=== PATIENT | female | born 1955 | race Caucasian/White ===

== ENCOUNTER 2016-07-26 15:56 | Observation (INO) | payer OTHER ==
[~2016-07-26] VITALS: Ht 152.4 cm; Wt 133.7 kg
[~2016-07-26 15:56] MED LIST: ALBU1AER9 INH; BUPR100T8 PO; BYTI10 SQ; CHOLTAB3 PO; CLBCRM30 EXT; CYCL10TA6 PO; FLUO0.05 TOP; IPRA1AER2 INH; LEVO100T7 PO; LIDO5DIS10 TD; LSX20 PO; METO25TA3 PO; METR0.754 TOP; OXYC1CAP5 PO; OXYC20TA50 PO; PIME1CRE9 TOP; SKINCRE34 TOP; [UNRECOGNIZED DRUG - CODE] TOP
[2016-07-26] MEDS ORDERED: SODIUM CHLORIDE 0.9% 1000ML 1,000 ML IV STA (16:17)
[2016-07-26] MEDS ORDERED: OPTIRAY 320 IV PRN (16:30)
--- NOTE | 2016-07-26 16:34 | EMERGENCY ROOM VISIT NOTE ---
History Report prepared by Rojelio: Jennifer Nash Under the Supervision of: Dr. Jaqui Negrete M.D. First contact with patient: 16:15 Chief Complaint: LEG PAIN,LEG INJURY Stated Complaint: R LEG/KNEE PAIN History of Present Illness The patient is a 60 year old female who presents to the Emergency Room with complaints of worsening edema to right lower leg beginning a few days prior to arrival. The patient states that for the past 4 days she has not been taking her water pill due to having to help . She is experiencing pain with ambulating. The patient is also very short of breath. She is on Coumadin. 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 Review of Systems See HPI for pertinent positives & negatives. A total of 10 systems reviewed and were otherwise negative. Past Medical & Surgical Medical Problems: (1) Asthma, Unspecified (2) Bronchitis Nos (3) Diab Shanti Wo Comp Type Ii Or Nos/Not Uncontrolled (4) Diverticulosis Colon (W/O Ment Of Hemorrhage) (5) Fibromyalgia (6) History of deep venous thrombosis or pulmonary embolus (7) Hypertension (8) Hypothyroidism Nos (9) Hypovolemia (10) Leg pain, bilateral (11) Malignant neoplasm of central portion of female breast (12) Morbid obesity (13) MTHFR mutation (14) Peripheral edema (15) Peripheral neuropathy (16) Psoriasis (17) Rosacea (18) SVT (supraventricular tachycardia) Surgical Problems: (1) H/O prior ablation treatment (2) History of parotid gland excision Family History Cancer Diabetes mellitus Heart disease Hypertension Kidney disease Kidney stones Social History Smoking Status: Former Smoker Alcohol Use: occasionally Marital Status: Housing Status: lives with significant other Occupation Status: retired Current/Historical Medications Scheduled Bupropion (Wellbutrin Sr), 100 MG PO BID Cyclobenzaprine Hcl (Flexeril), 10 MG PO HS Ergocalciferol (Vitamin D), 400 INTER.UNIT PO DAILY Eucerin (Eucerin), 1 APPLN TOP DAILY Exenatide (Byetta), 10 MCG SQ BIDM Folic Acid (Folvite), 1 MG PO DAILY Furosemide (Furosemide), 20 MG PO DAILY Insulin Glargine (Lantus Solostar), 28 UNITS SQ QAM Levothyroxine Sodium (Levothyroxine Sodium), 100 MCG PO DAILY Metoprolol Succ (Toprol Xl) (Toprol-Xl), 25 MG PO BID Minocycline Hcl (Minocycline Hcl), 1 CAP PO BIDM Oxycodone Hcl (Oxycontin), 20 MG PO Q12 Warfarin Sodium (Coumadin), 5 MG PO DAILY Scheduled PRN Albuterol Sulfate (Proair Hfa), 2 PUFFS INH QID PRN for Shortness of Breath Hydrocortisone (Topical) (Hydrocortisone), 1 APPLN TOP BID PRN for RASH Iodoquinol-Hydrocortisone In A (Vytone), 1 APPLN TOP BID PRN for FLARES Ipratropium-Albuterol (Combivent Respimat), 1 PUFFS INH QID PRN for Shortness of Breath Lidocaine (Lidoderm Patch 5%), 2 PATCH TD DAILY PRN for Pain Metronidazole Hcl (Metrocream), 1 APPLN TOP BID PRN for flares Oxycodone Hcl (Oxycodone Hcl), 5 MG PO Q6 PRN for Pain Pimecrolimus (Elidel), 1 APPLN TOP BID PRN for RASH Allergies Coded Allergies: Sulfa Antibiotics (Verified Allergy, Severe, RASH, ITCHINESS, HIVES, DIFFICULTY BREATHING, 09/26/14) Sulfites (Unverified Allergy, Severe, rash,diff breathing, 04/17/14) Amoxicillin (Verified Allergy, Unknown, rash/hives, 04/17/14) Aspirin (Verified Allergy, Unknown, 04/17/14) Erythromycin (Verified Allergy, Unknown, UNKN, 04/17/14) Methocarbamol (Verified Allergy, Unknown, rash,itchiness, hives, difficulty breathing, 04/17/14) Niacin (Verified Allergy, Unknown, red/itchy/heart racing, 04/17/14) Ibuprofen (Verified Adverse Reaction, Severe, TACHYCARDIA , 04/17/14) Meperidine (Verified Adverse Reaction, Severe, N/V, SEVERE NIGHTMARES, ) Physical Exam Vital Signs Date Time Temp Pulse Resp B/P Pulse Ox O2 Delivery O2 Flow Rate FiO2 07/26/16 19:36 102 20 164/70 97 Room Air 07/26/16 19:27 101 18 124/82 98 Room Air 07/26/16 16:52 102 07/26/16 16:05 36.7 103 18 195/113 99 Room Air Physical Exam Vital signs reviewed. General: Morbidly obese female, in no significant distress. HEENT: No scleral icterus, PERRLA, neck supple. Atraumatic. Cardiovascular: Regular rate and rhythm, no extra sounds. Pulmonary: No increase of work of breathing, diminished breath sounds bilaterally otherwise clear. Abdomen: Soft, nontender, nondistended, positive bowel sounds. Musculoskeletal: Atraumatic, non pitting intense edema to bilateral lower extremity to knees. Neurologic: Patient awake alert and oriented x 3, full strength in all 4 extremities. Cranial nerves 2 through 12 grossly intact. Skin: Warm, dry, no rash Medical Decision & Procedures ER Provider Diagnostic Interpretation: Radiology results as stated below per my review and radiologist interpretation: CT ANGIOGRAM OF THE CHEST CLINICAL HISTORY: Atypical chest pain. Leg pain. History of prior pulmonary embolism. COMPARISON STUDY: 09/26/2014 TECHNIQUE: Following the IV administration of 93 mL of Optiray-320, CT angiogram of the thorax was performed from the thoracic inlet to the lung bases utilizing the pulmonary embolus protocol. Images are reviewed in the axial, sagittal, and coronal planes. IV contrast was administered without complication. MIP imaging was performed. CT DOSE: 760.35 mGy.cm FINDINGS: No pathologically enlarged axillary mediastinal or hilar lymph nodes were visualized. There was no evidence of thoracic aortic dilatation. There were no pulmonary artery filling defects to indicate acute pulmonary embolism. No pleural effusions are visualized. There was no evidence of focal pulmonary consolidation. IMPRESSION: 1. No CT evidence of acute pulmonary embolism 2. No evidence of focal pulmonary consolidation Electronically signed by: Andres Boyd M.D. 07/26/2016 6:00 PM Dictated Date/Time: 07/26/2016 5:55 PM Laboratory Results Test 07/26/16 16:42 07/26/16 16:46 Immature Granulocyte % (Auto) 0.3 % White Blood Count 8.85 K/uL (4.8-10.8) Red Blood Count 4.92 M/uL (4.2-5.4) Hemoglobin 15.2 g/dL (12.0-16.0) Hematocrit 42.7 % (37-47) Mean Corpuscular Volume 86.8 fL (80-100) Mean Corpuscular Hemoglobin 30.9 pg (25-34) Mean Corpuscular Hemoglobin Concent 35.6 g/dl (32-36) Platelet Count 209 K/uL (130-400) Mean Platelet Volume 9.3 fL (7.4-10.4) Neutrophils (%) (Auto) 58.3 % Lymphocytes (%) (Auto) 27.7 % Monocytes (%) (Auto) 11.4 % Eosinophils (%) (Auto) 2.0 % Basophils (%) (Auto) 0.3 % Neutrophils # (Auto) 5.15 K/uL (1.4-6.5) Lymphocytes # (Auto) 2.45 K/uL (1.2-3.4) Monocytes # (Auto) 1.01 K/uL (0.11-0.59) Eosinophils # (Auto) 0.18 K/uL (0-0.5) Basophils # (Auto) 0.03 K/uL (0-0.2) Immature Granulocyte # (Auto) 0.03 K/uL (0.00-0.02) Activated Partial Thromboplast Time 33.6 SECONDS (21.0-31.0) Partial Thromboplastin Ratio 1.3 Total Bilirubin 1.0 mg/dl (0.2-1) Direct Bilirubin 0.2 mg/dl (0-0.2) Aspartate Amino Transf (AST/SGOT) 21 U/L (15-37) Alanine Aminotransferase (ALT/SGPT) 28 U/L (12-78) Alkaline Phosphatase 81 U/L (45-117) Total Protein 7.7 gm/dl (6.4-8.2) Albumin 3.6 gm/dl (3.4-5.0) Bedside Hemoglobin 15.3 g/dl (12.0-16.0) Bedside Hematocrit 45 % (37-47) Bedside Sodium 140 mEq/L (135-144) Bedside Potassium 3.8 mEq/L (3.3-5.0) Bedside Chloride 99 mEq/L (101-112) Bedside Total CO2 28 mEq/l (24-31) Bedside Blood Urea Nitrogen 12 mg/dl (7-18) Bedside Creatinine 0.7 mg/dl (0.6-1.3) Bedside Glucose (other) 135 mg/dl (70-99) Bedside Ionized Calcium (Yovana) 1.20 mmol/l (1.12-1.32) Laboratory results per my review. Medications Administered Medications (Trade) Dose Ordered Sig/Ian Route Start Time Stop Time Status Last Admin Dose Admin Furosemide (Lasix Inj) 40 mg NOW STAT IV 07/26/16 17:03 07/26/16 17:04 DC 07/26/16 17:03 40 MG Labetalol HCl (Normodyne IV) 10 mg NOW STAT IV 07/26/16 18:05 07/26/16 18:06 DC 07/26/16 18:05 10 MG Oxycodone HCl (Roxicodone Immediate Rel Tab) 10 mg NOW STAT PO 07/26/16 18:40 07/26/16 18:42 DC 07/26/16 18:40 10 MG ECG Indication: weakness Rate (beats per minute): 102 Rhythm: sinus tachycardia Findings: no acute ischemic change, no ectopy ED Course 162: Past medical records reviewed. The patient was evaluated in room B4. A complete history and physical examination was performed. 1703: Lasix Inj 40 mg IV, 1805: Normodyne IV 10 mg IV. Medical Decision The patient is a 60 year old female who presents to the ED with complaints of right leg edema. Differentials include DVT, musculoskeletal, infection, joint effusion, trauma, lymphedema, idiopathic, CHF, as well as others were entertained.. This patient was evaluated and appeared to be in no distress. IV access was obtained and laboratory work was drawn. The patient was placed on the photoengraving apprentice and found to be in a normal sinus rhythm. She is morbidly obese and has significant difficulty ambulating. The patient is requiring a walker and 2 person assist due to the pain and swelling. Ultrasound of the bilateral lower extremities were performed and are negative for DVT. The patient was medicated with 40 mg of IV Lasix. Patient was given a dose of IV labetalol 10 mg for persistent hypertension. At this point the patient is not able to care for herself, therefore cannot be discharged. She is requiring IV diuresis and physical therapy evaluation. The patient has been were made aware of this plan and agrees. Impression Primary Impression: Hypertension Additional Impressions: Fluid retention Morbid obesity Scribe Attestation The scribe's documentation has been prepared under my direction and personally reviewed by me in its entirety. I confirm that the note above accurately reflects all work, treatment, procedures, and medical decision making performed by me. Departure Information Dispostion Being Evaluated By Hospitalist Referrals Marcellus Ortiz III, M.D. (PCP) Problem Qualifiers
[2016-07-26 16:52] LABS: BASO % 0.3 %; BASO ABS # 0.03 K/uL (0-0.2); COMPLETE YES; HEMATOCRIT 42.7 % (37-47); IG% 0.3 %; LYMPH % 27.7 %; LYMPH ABS # 2.45 K/uL (1.2-3.4); MEAN CELL VOLUME 86.8 fL (80-100); MEAN CORPUSCULAR HEMOGLOBIN 30.9 pg (25-34); MEAN CORPUSCULAR HGB CONC 35.6 g/dl (32-36); MEAN PLATELET VOLUME 9.3 fL (7.4-10.4); MONO % 11.4 %; NEUT % 58.3 %; PLATELET COUNT 209 K/uL (130-400); RED BLOOD COUNT 4.92 M/uL (4.2-5.4); WHITE BLOOD COUNT 8.85 K/uL (4.8-10.8)
[2016-07-26 17:01] LABS: ISTAT CREATININE 0.7 mg/dl (0.6-1.3); ISTAT HEMOGLOBIN 15.3 g/dl (12.0-16.0); ISTAT IONIZED CALCIUM 1.2 mmol/l (1.12-1.32)
[2016-07-26 17:02] LABS: PARTIAL THROMBOPLASTIN RATIO 1.3; PROTHROMBIN TIME (PATIENT) 22.4 SECONDS (9.0-12.0)
[2016-07-26] MEDS ORDERED: FUROSEMIDE 40 MG/4 ML VIAL IV STA (17:03)
[2016-07-26 17:09] LABS: CALCIUM 9.5 mg/dl (8.5-10.1); CREATININE 0.87 mg/dl (0.60-1.20); POTASSIUM 3.8 mmol/L (3.5-5.1)
--- NOTE | 2016-07-26 18:02 | DIAGNOSTIC IMAGING REPORT ---
CT ANGIOGRAM OF THE CHEST CLINICAL HISTORY: Atypical chest pain. Leg pain. History of prior pulmonary embolism. COMPARISON STUDY: 09/26/2014 TECHNIQUE: Following the IV administration of 93 mL of Optiray-320, CT angiogram of the thorax was performed from the thoracic inlet to the lung bases utilizing the pulmonary embolus protocol. Images are reviewed in the axial, sagittal, and coronal planes. IV contrast was administered without complication. MIP imaging was performed. CT DOSE: 760.35 mGy.cm FINDINGS: No pathologically enlarged axillary mediastinal or hilar lymph nodes were visualized. There was no evidence of thoracic aortic dilatation. There were no pulmonary artery filling defects to indicate acute pulmonary embolism. No pleural effusions are visualized. There was no evidence of focal pulmonary consolidation. IMPRESSION: 1. No CT evidence of acute pulmonary embolism 2. No evidence of focal pulmonary consolidation Electronically signed by: Andres Boyd M.D. 07/26/2016 6:00 PM Dictated Date/Time: 07/26/2016 5:55 PM
[2016-07-26] MEDS ORDERED: LABETALOL HCL IV 5 MG/ML 20ML IV STA (18:05)
--- NOTE | 2016-07-26 18:28 | DIAGNOSTIC IMAGING REPORT ---
ULTRASOUND VENOUS DOPPLER LWR EXT BILA CLINICAL HISTORY: Bilateral leg pain COMPARISON STUDY: September 2014 FINDINGS: Real-time and color flow Doppler imaging were performed. Flow was seen within the femoral, popliteal and calf veins with no intraluminal thrombus demonstrated. The saphenous vein is patent. IMPRESSION: No evidence of lower extremity DVT Electronically signed by: Andres Boyd M.D. 07/26/2016 6:26 PM Dictated Date/Time: 07/26/2016 6:25 PM
[2016-07-26] MEDS ORDERED: OXYCODONE HCL IR 5 MG TAB (IMMEDIATE RELEASE) PO STA (18:40)
[2016-07-26] MEDS ORDERED: WARF5TAB90 PO (19:10)
[2016-07-26] MEDS ORDERED: HYDR2.5O TOP (19:15)
[2016-07-26] MEDS ORDERED: MINO50CA3 PO (19:17)
[2016-07-26] MEDS ORDERED: INSDGIPEN SQ (19:20)
[2016-07-26] MEDS ORDERED: FOLI1TAB7 PO (19:21)
[2016-07-26] MEDS ORDERED: GLUCOSE 40% GEL 15 GM TUBE PO PRN (20:45)
[2016-07-26] MEDS ORDERED: GLUCOSE 10 TABS/TUBE PO PRN (20:45)
[2016-07-26] MEDS ORDERED: GLUCAGON FOR INJ 1 MG VIAL SQ PRN (20:45)
[2016-07-26] MEDS ORDERED: ACETAMINOPHEN 325 MG TAB PO PRN (20:45)
[2016-07-26] MEDS ORDERED: DEXTROSE 50% 50 ML SYR IV PRN (20:45)
[2016-07-26] MEDS ORDERED: ONDANSETRON INJ 2 MG/ML 2 ML VIAL IV PRN (20:45)
[2016-07-26] MEDS ORDERED: POLYETHYLENE (MIRALAX) 17 GM PACK PO PRN (20:45)
[2016-07-26] MEDS ORDERED: NF656 TD (20:58)
[2016-07-26] MEDS ORDERED: LIDODERM (LIDOCAINE) PATCH 5% TD PRN (21:00)
[2016-07-26] MEDS: INSULIN ASPART 100 UNITS/ML 3 ML PEN SC SCH (21:00)
[2016-07-26] MEDS ORDERED: IPRATROPIUM BROMIDE/ALBUTEROL respimat INH INH PRN (21:00)
[2016-07-26] MEDS ORDERED: ALBUTEROL HFA 8 GM INHALER INH PRN (21:00)
--- NOTE | 2016-07-26 21:18 | History and Physical ---
History & Physical Date & Time of Service: Jul 26, 2016 at 20:59 Chief Complaint: R Leg/Knee Pain Primary Care Physician: Marcellus Ortiz III, M.D. History of Present Illness Source: patient 60 yo F presents today with difficulty ambulating at home secondary to severe leg pain and leg swelling over the past 7 days. She states she takes Lasix 20mg PO daily, and has been noncompliant with this for the past 7 days as she has been going to appointments with her and cannot take them when out of her house. She also admits to some dietary indiscretions with salty foods this week. She states that at baseline she can walk to the back of the grocery store and up to the front without stopping, but now she is have trouble doing small things like ambulating to the bathroom. 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 She has some pain over the anterior tibial plateau bilaterally, and on the right this pain tracks up the lateral side of her right knee. Then she reports some L ankle swelling which she attributes to using this leg to compensate from her gait which has been off 2/2 to the pain in the knees. She also reports burning neuropathic pain on the bottoms of her feet. Underlying everything is a history of fibromyalgia, for which she takes chronic narcotics. She is morbidly obese, and reports a weight gain of 7 pounds over the past week. 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 For this, she remains on coumadin and is fully anticoagulated. She is not tachypneic, there is no conversational dyspnea today, and she is not hypoxic. However, she does appear short of breath with minimal exertion. She is s/p ablation many years ago for an SVT, but denies any chest pain or palpitations at this time. She also denies headache, sore throat, cough, fevers, chills, nausea, vomiting, diarrhea , or constipation. She is tolerating PO. CT chest with contrast reveals no PE or other acute lung process in the ER; bilateral lower extremity ultrasounds are negative for any DVT. Past Medical/Surgical History Medical Problems: (1) Asthma, Unspecified Status: Chronic (2) Bronchitis Nos Status: Resolved (3) Diab Shanti Wo Comp Type Ii Or Nos/Not Uncontrolled Status: Chronic (4) Diverticulosis Colon (W/O Ment Of Hemorrhage) Status: Chronic (5) Fibromyalgia Status: Chronic (6) History of deep venous thrombosis or pulmonary embolus Status: Chronic (7) Hypertension Status: Chronic (8) Hypothyroidism Nos Status: Chronic (9) Hypovolemia Status: Chronic (10) Leg pain, bilateral Status: Chronic (11) Malignant neoplasm of central portion of female breast Permanent Comment: Abnormal right breast mammogram Status post biopsy revealing invasive ductal carcinoma status post lumpectomy and sentinel lymph node biopsy pathologic stage [id number] Carine receptor positive, progesterone receptor positive, HER-2/yovani negative Oncotype DX score of 13 Status post completion of radiation therapy 08/15/2011 received 6120 cGy Intolerance to antiestrogen therapy Status: Resolved (12) Morbid obesity Status: Chronic (13) MTHFR mutation Status: Chronic (14) Peripheral edema Status: Chronic (15) Peripheral neuropathy Status: Chronic (16) Psoriasis Status: Chronic (17) Rosacea Status: Chronic (18) SVT (supraventricular tachycardia) Status: Resolved Surgical Problems: (1) H/O prior ablation treatment Status: Chronic (2) History of parotid gland excision Status: Chronic Family History Cancer Diabetes mellitus Heart disease Hypertension Kidney disease Kidney stones Social History Smoking Status: Former Smoker Smokeless Tobacco Use: No Alcohol Use: occasionally Drug Use: none Marital Status: Housing status: lives with significant other Occupational Status: retired, disabled Immunizations History of Influenza Vaccine: Yes Influenza Vaccine Date: Feb 13, 2015 History of Tetanus Vaccine?: Yes Tetanus Immunization Date: Feb 17, 2007 History of Pneumococcal: Yes Pneumococcal Date: Dec 01, 2012 History of Hepatitis B Vaccine: Yes Hepatitis Immunization Date: September 13, 2013 Multi-Drug Resistant Organisms History of MDRO: No Allergies Coded Allergies: Sulfa Antibiotics (Verified Allergy, Severe, RASH, ITCHINESS, HIVES, DIFFICULTY BREATHING, 09/26/14) Sulfites (Unverified Allergy, Severe, rash,diff breathing, 04/17/14) Amoxicillin (Verified Allergy, Unknown, rash/hives, 04/17/14) Aspirin (Verified Allergy, Unknown, 04/17/14) Erythromycin (Verified Allergy, Unknown, UNKN, 04/17/14) Methocarbamol (Verified Allergy, Unknown, rash,itchiness, hives, difficulty breathing, 04/17/14) Niacin (Verified Allergy, Unknown, red/itchy/heart racing, 04/17/14) Ibuprofen (Verified Adverse Reaction, Severe, TACHYCARDIA , 04/17/14) Meperidine (Verified Adverse Reaction, Severe, N/V, SEVERE NIGHTMARES, ) Home Medications Scheduled Bupropion (Wellbutrin Sr), 100 MG PO BID Cyclobenzaprine Hcl (Flexeril), 10 MG PO HS Ergocalciferol (Vitamin D), 400 INTER.UNIT PO DAILY Eucerin (Eucerin), 1 APPLN TOP DAILY Exenatide (Byetta), 10 MCG SQ BIDM Folic Acid (Folvite), 1 MG PO DAILY Furosemide (Furosemide), 20 MG PO DAILY Insulin Glargine (Lantus Solostar), 28 UNITS SQ QAM Levothyroxine Sodium (Levothyroxine Sodium), 100 MCG PO DAILY Metoprolol Succ (Toprol Xl) (Toprol-Xl), 25 MG PO BID Minocycline Hcl (Minocycline Hcl), 1 CAP PO BIDM Oxycodone Hcl (Oxycontin), 20 MG PO Q12 Warfarin Sodium (Coumadin), 5 MG PO DAILY Scheduled PRN Albuterol Sulfate (Proair Hfa), 2 PUFFS INH QID PRN for Shortness of Breath Hydrocortisone (Topical) (Hydrocortisone), 1 APPLN TOP BID PRN for RASH Iodoquinol-Hydrocortisone In A (Vytone), 1 APPLN TOP BID PRN for FLARES Ipratropium-Albuterol (Combivent Respimat), 1 PUFFS INH QID PRN for Shortness of Breath Lidocaine (Lidoderm Patch 5%), 2 PATCH TD DAILY PRN for Pain Metronidazole Hcl (Metrocream), 1 APPLN TOP BID PRN for flares Oxycodone Hcl (Oxycodone Hcl), 5 MG PO Q6 PRN for Pain Pimecrolimus (Elidel), 1 APPLN TOP BID PRN for RASH Review of Systems All reviewed and negative except as indicated in HPI Constitutional: + fever Physical Exam Vital Signs Date Time Temp Pulse Resp B/P Pulse Ox O2 Delivery O2 Flow Rate FiO2 07/26/16 19:36 102 20 164/70 97 Room Air 07/26/16 19:27 101 18 124/82 98 Room Air 07/26/16 16:52 102 07/26/16 16:05 36.7 103 18 195/113 99 Room Air GEN: obese, in no acute distress, alert and appropriate, short of breath with minimal exertion HEENT: NC/AT, PERRL, normal sclerae, pharynx non-acute, mucous membranes moist CARDIO: reg rate, S1/2 heard without m/g/r LUNGS: CTA bilaterally, no crackles, rales or wheezes, good diaphragmatic excursion ABD: soft, non-tender, non-distended, no rebound or guarding EXTREMITY: RP and DP palpable 2+ bilat, extremities are warm and well-perfused, there is chronic change to the skin in the form of erythroderma and hardened, tightened skin. No pitting edema is present. Legs are very obese limiting exam. ROM appears intact, gait was not assessed as patient is a fall risk at this time. NEURO: CN 2-12 grossly intact, sensation intact throughout MUSC:moves all extremities equally, no gross focal deficits SKIN: warm and dry and as above Diagnostics Laboratory Results Results Past 24 Hours Test 07/26/16 16:42 07/26/16 16:46 Range/Units White Blood Count 8.85 4.8-10.8 K/uL Red Blood Count 4.92 4.2-5.4 M/uL Hemoglobin 15.2 12.0-16.0 g/dL Hematocrit 42.7 37-47 % Mean Corpuscular Volume 86.8 80-100 fL Mean Corpuscular Hemoglobin 30.9 25-34 pg Mean Corpuscular Hemoglobin Concent 35.6 32-36 g/dl Platelet Count 209 130-400 K/uL Mean Platelet Volume 9.3 7.4-10.4 fL Neutrophils (%) (Auto) 58.3 % Lymphocytes (%) (Auto) 27.7 % Monocytes (%) (Auto) 11.4 % Eosinophils (%) (Auto) 2.0 % Basophils (%) (Auto) 0.3 % Neutrophils # (Auto) 5.15 1.4-6.5 K/uL Lymphocytes # (Auto) 2.45 1.2-3.4 K/uL Monocytes # (Auto) 1.01 0.11-0.59 K/uL Eosinophils # (Auto) 0.18 0-0.5 K/uL Basophils # (Auto) 0.03 0-0.2 K/uL RDW Standard Deviation 42.5 36.4-46.3 fL RDW Coefficient of Variation 13.4 11.5-14.5 % Immature Granulocyte % (Auto) 0.3 % Immature Granulocyte # (Auto) 0.03 0.00-0.02 K/uL Prothrombin Time 22.4 9.0-12.0 SECONDS Prothromb Time International Ratio 2.0 0.9-1.1 Activated Partial Thromboplast Time 33.6 21.0-31.0 SECONDS Partial Thromboplastin Ratio 1.3 Sodium Level 140 136-145 mmol/L Potassium Level 3.8 3.5-5.1 mmol/L Chloride Level 102 98-107 mmol/L Carbon Dioxide Level 33 21-32 mmol/L Anion Gap 5.0 18.0 16-25 mmol/L Blood Urea Nitrogen 11 7-18 mg/dl Creatinine 0.87 0.60-1.20 mg/dl Est Creatinine Clear Calc Drug Dose 88.2 ml/min Estimated GFR () 82.8 Estimated GFR (Non- 71.4 BUN/Creatinine Ratio 13.0 10-20 Random Glucose 136 70-99 mg/dl Calcium Level 9.5 8.5-10.1 mg/dl Total Bilirubin 1.0 0.2-1 mg/dl Direct Bilirubin 0.2 0-0.2 mg/dl Aspartate Amino Transf (AST/SGOT) 21 15-37 U/L Alanine Aminotransferase (ALT/SGPT) 28 12-78 U/L Alkaline Phosphatase 81 45-117 U/L Total Protein 7.7 6.4-8.2 gm/dl Albumin 3.6 3.4-5.0 gm/dl Bedside Hemoglobin 15.3 12.0-16.0 g/dl Bedside Hematocrit 45 37-47 % Bedside Sodium 140 135-144 mEq/L Bedside Potassium 3.8 3.3-5.0 mEq/L Bedside Chloride 99 101-112 mEq/L Bedside Total CO2 28 24-31 mEq/l Bedside Blood Urea Nitrogen 12 7-18 mg/dl Bedside Creatinine 0.7 0.6-1.3 mg/dl Bedside Glucose (other) 135 70-99 mg/dl Bedside Ionized Calcium (Yovana) 1.20 1.12-1.32 mmol/l Diagnostic Radiology CT ANGIO (07/26): IMPRESSION: 1. No CT evidence of acute pulmonary embolism 2. No evidence of focal pulmonary consolidation BL LE US: IMPRESSION: No evidence of lower extremity DVT EKG EKG-ST 102, no ST changes, non-ischemic Impression Assessment and Plan 60 yo F with severe leg swelling and pain 1. Leg pain-morbidly obese female with h/o chronic pain issues on chronic narcotics for fibromyalgia. Her pain threshold is lower because of the FM, and she states that the pain is worse since recent steroid injections. She also reports some weight gain and swelling. I think this pain is multifactorial 2/2 pressure from excessive body weight on her joints, this recent procedure, in the setting of fibromyalgia and overall clinical deterioration as she has been caring for her and reportedly neglecting herself. 2. Leg swelling--pt reports dietary indiscretions and noncompliance with Lasix which she takes chronically. She is obese and has chronic LE swelling with evidence of erythroderma and chronic venous stasis changes. She asked me about getting her legs wrapped as an outpatient. We discussed the possible problems that people with diabetes and chronic swelling can have, so that she is aware. Will restart the Lasix and give it IV in case of any bowel swelling and poor absorption in the gut as a result. Also will cut salt in diet while inpatient. TEDs ordered. 3. Dyspnea on exertion-this appears to be chronic, but she is notably worse. Unclear etiology. No PE on imaging, and there is no hypoxia or tachypnea present. She denies any chest pain. No echo on file so will start there. PT/ OT evals to see what she can do 4. Ambulatory dysfunction 2/2 weight, shortness of breath, and leg pain-PT/OT evals 5. DMII-hold byetta and cont ISS with Lantus, inpatient pharmacy consult placed 6. Fibromyalgia and other chronic pain-cont narcotics, Lidoderm patches and Welbutrin 7. HTN-controlled, cont Toprol 8. Hypothyroidism-normal TSH in Apr 2016 9. Rosacea-Metrogel PRN 10. Psoriasis-topical steroids PRN 11. 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 Y/N: Yes Risk Level: Moderate Given or contraindicated: Warfarin (Coumadin)
[2016-07-26] MEDS ORDERED: IV FLUIDS COMPLETED PRN (21:30)
[2016-07-26] MEDS ORDERED: PHARMACY GLYCEMIC MGMT CONSULT PRN (21:50)
[2016-07-26] MEDS: OXYCODONE HCL 20 MG TABCR (OXYCONTIN) PO SCH (22:31)
[2016-07-26] MEDS: CYCLOBENZAPRINE HCL 10 MG TAB PO SCH (22:31)
[2016-07-26 22:48] VITALS: O2SAT 98; BMI 60.3
[2016-07-26] MEDS ORDERED: INSULIN ASPART 100 UNITS/ML 3 ML PEN SC STA (23:08)
[2016-07-26] MEDS: MINOCYCLINE~ORDER AWAITING ACTION SCH (23:39)
[2016-07-27 05:05] VITALS: BP 143/82; PULSE 100; TEMP 36.7; O2SAT 96
[2016-07-27] MEDS: LEVOTHYROXINE 100 MCG TAB PO SCH (05:07)
[2016-07-27] MEDS: OXYCODONE HCL IR 5 MG TAB (IMMEDIATE RELEASE) PO PRN ×2 (05:08→17:23)
[2016-07-27 07:21] LABS: HEMATOCRIT 40.5 % (37-47); MEAN CELL VOLUME 88.4 fL (80-100); MEAN CORPUSCULAR HGB CONC 35.1 g/dl (32-36); MEAN PLATELET VOLUME 9.7 fL (7.4-10.4); PLATELET COUNT 163 K/uL (130-400); RED BLOOD COUNT 4.58 M/uL (4.2-5.4); WHITE BLOOD COUNT 7.21 K/uL (4.8-10.8)
[2016-07-27 07:26] LABS: INR 1.8 (0.9-1.1); PROTHROMBIN TIME (PATIENT) 20.1 SECONDS (9.0-12.0)
[2016-07-27 07:43] VITALS: BP 138/84; PULSE 95; TEMP 36.9; O2SAT 97
[2016-07-27 07:50] LABS: BUN/CREATININE RATIO 18.5 (10-20); CALCIUM 8.8 mg/dl (8.5-10.1); CREATININE 0.79 mg/dl (0.60-1.20); MAGNESIUM 1.8 mg/dl (1.8-2.4); POTASSIUM 3.8 mmol/L (3.5-5.1)
[2016-07-27] MEDS: MINOCYCLINE~ORDER AWAITING ACTION SCH ×2 (07:56→15:50)
[2016-07-27] MEDS ORDERED: FUROSEMIDE INJ 20 MG in SYRINGE 0 ML IV SCH (08:00)
[2016-07-27] MEDS ORDERED: PERFLUTREN LIPID MICROSPHERE (DEFINITY) IV ONE (08:03)
[2016-07-27] MEDS: CHOLECALCIFEROL 400 INTER.UNIT TAB PO SCH (08:23)
[2016-07-27] MEDS: METOPROLOL SUCC 25MG EXT REL TAB PO SCH ×2 (08:23→21:21)
[2016-07-27] MEDS: EUCERIN CR 120 GM JAR EXT SCH (08:23)
[2016-07-27] MEDS: BuPROPion SR 100 MG TABCR PO SCH ×2 (08:23→21:20)
[2016-07-27] MEDS: INSULIN ASPART 100 UNITS/ML 3 ML PEN SC SCH ×4 (08:28→21:13)
[2016-07-27] MEDS: INSULIN GLARGINE SOLOSTAR 100 UNITS/ML 3 ML PEN SC SCH (08:29)
[2016-07-27] MEDS: OXYCODONE HCL 20 MG TABCR (OXYCONTIN) PO SCH ×2 (08:33→21:20)
--- NOTE | 2016-07-27 09:26 | ECHOCARDIOGRAM REPORT ---
*NOTICE TO RECEIVING REPUBLICAN AGENCY This information is strictly Confidential and protected under [place] law. [place] law prohibits you from making any further disclosure of this information unless further disclosure is expressly permitted by the written consent of the person to whom it pertains or is authorized by law. A general authorization for the release of medical or other information is not sufficient for this purpose. Hospital accepts no responsibility if the information is made available to any other person, INCLUDING THE PATIENT. Interpretation Summary * Name: SATURNINO BUENROSTRO Study Date: 07/27/2016 07:30 AM BP: 138/84 mmHg * Patient Location: [id number] HR: 95 * : 1955 (M/d/yyy) Gender: Female Height: 60 in * Age: 60 yrs Ethnicity: [place] Weight: 308 lb * Ordering Physician: Latisha Page * Referring Physician: Self, Referred * Performed By: Va Vallecillo RDCS * * Reason For Study: SOB, YIP * BSA: 2.2 m2 * History: SOB, YIP * -- Conclusions -- * The study was technically limited. * A contrast injection of Definity was performed to improve assessment of LV function. * The left ventricle is normal in size. * There is mild concentric left ventricular hypertrophy. * No regional wall motion abnormalities noted. * Ejection Fraction = 50-55%. * No hemodynamically significant valvular aortic stenosis. * There is no pericardial effusion. Procedure Details * A contrast injection of Definity was performed to improve assessment of LV function. * Contrast was injected into an intravenous site in the left arm. * One vial of Definity ultrasound contrast was diluted in normal saline to a total volume of 10 ml. A total of '2' ml of solution was administered during imaging. * Lot # [id number] of Definity utilized for procedure. * The attending nurse who injected the contrast agent was DEBBIE CESPEDES RN. * Expiration date 1 JUN 07. * The study was technically limited. * A complete two-dimensional transthoracic echocardiogram was performed (2D, M-mode, Doppler and color flow Doppler). Left Ventricle * The left ventricle is normal in size. * There is mild concentric left ventricular hypertrophy. * Ejection Fraction = 50-55%. * Left ventricular systolic function is normal. * No regional wall motion abnormalities noted. Right Ventricle * The right ventricle is normal in size and function. Atria * The left atrial size is normal. * Right atrial size is normal. * No ASD detected; PFO is not assessed. Mitral Valve * There is mild mitral annular calcification. * There is no mitral valve stenosis. * There is trace mitral regurgitation. Tricuspid Valve * The tricuspid valve is not well visualized. * There is no tricuspid stenosis. * There is trace tricuspid regurgitation. Aortic Valve * The aortic valve is not well visualized. * No hemodynamically significant valvular aortic stenosis. * No aortic regurgitation is present. Pulmonic Valve * The pulmonic valve is not well visualized. Great Vessels * The aortic root is normal size. Pericardium/Pleural * There is no pericardial effusion. Great Vessels * Normal inferior vena cava diameter and respiratory variation suggests normal central venous pressure. MMode 2D Measurements and Calculations IVSd 1.4 cm IVSs 1.9 cm LVIDd 4.1 cm LVIDs 3.0 cm LVPWd 2.1 cm LVPWs 1.7 cm IVS/LVPW 0.69 FS 25.5 % EDV(Teich) 72.3 ml ESV(Teich) 35.6 ml EF(Teich) 50.7 % EDV(cubed) 66.7 ml ESV(cubed) 27.6 ml EF(cubed) 58.6 % % IVS thick 32.7 % % LVPW thick -18.31 % LV mass(C)d 305.8 grams LV mass(C)dI 136.4 grams/m\S\2 LV mass(C)s 219.3 grams LV mass(C)sI 97.8 grams/m\S\2 SV(Teich) 36.7 ml SI(Teich) 16.4 ml/m\S\2 SV(cubed) 39.1 ml SI(cubed) 17.4 ml/m\S\2 LVAd ap4 30.0 cm\S\2 LVLd ap4 7.9 cm EDV(MOD-sp4) 91.7 ml EDV(sp4-el) 97.4 ml LVAs ap4 20.2 cm\S\2 LVLs ap4 6.9 cm ESV(MOD-sp4) 47.2 ml ESV(sp4-el) 49.8 ml EF(MOD-sp4) 48.5 % EF(sp4-el) 48.8 % LVAd ap2 29.2 cm\S\2 LVLd ap2 8.0 cm EDV(MOD-sp2) 84.9 ml EDV(sp2-el) 90.7 ml LVAs ap2 18.6 cm\S\2 LVLs ap2 7.0 cm ESV(MOD-sp2) 39.2 ml ESV(sp2-el) 42.3 ml EF(MOD-sp2) 53.9 % EF(sp2-el) 53.3 % LVLd %diff 1.2 % EDV(MOD-bp) 90.2 ml LVLs %diff 0.33 % ESV(MOD-bp) 43.5 ml EF(MOD-bp) 51.8 % SV(MOD-sp4) 44.4 ml SI(MOD-sp4) 19.8 ml/m\S\2 SV(MOD-sp2) 45.7 ml SI(MOD-sp2) 20.4 ml/m\S\2 SV(MOD-bp) 46.7 ml SI(MOD-bp) 20.8 ml/m\S\2 SV(sp4-el) 47.6 ml SI(sp4-el) 21.2 ml/m\S\2 SV(sp2-el) 48.4 ml SI(sp2-el) 21.6 ml/m\S\2 Doppler Measurements and Calculations MV E max thang 96.0 cm/sec MV A max thang 102.3 cm/sec MV E/A 0.94 MV dec time 0.14 sec Ao V2 max 136.8 cm/sec Ao max PG 7.5 mmHg Ao max PG (full) 5.6 mmHg LV V1 max PG 1.9 mmHg LV V1 max 68.9 cm/sec
--- NOTE | 2016-07-27 12:21 | Progress Note ---
Internal Med Progress Note Date of Service: Jul 27, 2016. Provider Documentation: SUBJECTIVE: Patient says she feels tired. Leg pain- both right > left from knee to above ankle Leg swelling + bilaterally No redness, warmth, fever, chills, abd pain, chest pain, SOB at rest, cough. OBJECTIVE: Vital Signs-as noted below Exam: General-AAOX3, no distress,Morbid obesity + Neck-Supple, Obese Lungs-AEBE decreased, no wheezing Heart-S1, S2 normal, no murmurs Abdomen-Soft, non tender, obese, BS present Extremities-Leg swelling bilaterally + no erythema, warmth Neuro-Grossly no focal deficits Lab data as noted below. ASSESSMENT & PLAN: 60 yo F with leg pain, swelling. LEG PAIN: Right lower leg extending from knee to lower leg. No signs of cellulitis, swelling has improved. -Multifactorial: Hx of chronic pain issues on chronic narcotics with hx of fibromyalgia, morbid obesity. No trauma , no acute issues noted. Venous duplex- Negative for DVT. -Able to ambulate with walker LEG SWELLING-BILATERAL Acute on chronic worsening secondary to not taking her lasix x 7 days. No evidence of cellulitis, venous duplex negative for DVT, Echo- Mild LVH, EF 50 -55% -S/P IV lasix x 1 dose. Will increase lasix to 20 mg PO BID CHRONIC SOB,cherie on exertion -Likely secondary to Morbid obesity, CAMRYN -CT chest- no PE, Consolidation, CHF. 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 INR is 1.8. -Will start lovenox SQ BID till INR therapeutic AMBULATORY DYSFUNCTION -Secondary to weight/Leg pain and swelling -PT/OT evaluation ordered DM-2 -Hold Byetta -Lantus, ISS HYPOTHYROIDISM -Normal TSH ROSACEA -Metrogel PRN PSORIASIS -Topical steroids PRN DVT proph: coumadin; Lovenox SQ FULL CODE DISPOSITION Expected discharge home tomorrow PT/OT ordered Vital Signs: Date Time Temp Pulse Resp B/P Pulse Ox O2 Delivery O2 Flow Rate FiO2 07/27/16 08:00 Room Air 07/27/16 07:43 36.9 95 20 138/84 97 Room Air 07/27/16 05:05 36.7 100 18 143/82 96 Room Air 07/27/16 00:50 CPAP 07/26/16 22:48 98 07/26/16 21:35 86 20 140/79 98 Room Air 07/26/16 20:59 103 07/26/16 19:36 102 20 164/70 97 Room Air 07/26/16 19:27 101 18 124/82 98 Room Air 07/26/16 16:52 102 07/26/16 16:05 36.7 103 18 195/113 99 Room Air Lab Results: Results Past 24 Hours Test 07/26/16 16:42 07/26/16 16:46 07/27/16 06:32 07/27/16 06:35 Range/Units White Blood Count 8.85 7.21 4.8-10.8 K/uL Red Blood Count 4.92 4.58 4.2-5.4 M/uL Hemoglobin 15.2 14.2 12.0-16.0 g/dL Hematocrit 42.7 40.5 37-47 % Mean Corpuscular Volume 86.8 88.4 80-100 fL Mean Corpuscular Hemoglobin 30.9 31.0 25-34 pg Mean Corpuscular Hemoglobin Concent 35.6 35.1 32-36 g/dl Platelet Count 209 163 130-400 K/uL Mean Platelet Volume 9.3 9.7 7.4-10.4 fL Neutrophils (%) (Auto) 58.3 % Lymphocytes (%) (Auto) 27.7 % Monocytes (%) (Auto) 11.4 % Eosinophils (%) (Auto) 2.0 % Basophils (%) (Auto) 0.3 % Neutrophils # (Auto) 5.15 1.4-6.5 K/uL Lymphocytes # (Auto) 2.45 1.2-3.4 K/uL Monocytes # (Auto) 1.01 0.11-0.59 K/uL Eosinophils # (Auto) 0.18 0-0.5 K/uL Basophils # (Auto) 0.03 0-0.2 K/uL RDW Standard Deviation 42.5 44.8 36.4-46.3 fL RDW Coefficient of Variation 13.4 13.8 11.5-14.5 % Immature Granulocyte % (Auto) 0.3 % Immature Granulocyte # (Auto) 0.03 0.00-0.02 K/uL Prothrombin Time 22.4 20.1 9.0-12.0 SECONDS Prothromb Time International Ratio 2.0 1.8 0.9-1.1 Activated Partial Thromboplast Time 33.6 21.0-31.0 SECONDS Partial Thromboplastin Ratio 1.3 Sodium Level 140 140 136-145 mmol/L Potassium Level 3.8 3.8 3.5-5.1 mmol/L Chloride Level 102 101 98-107 mmol/L Carbon Dioxide Level 33 27 21-32 mmol/L Anion Gap 5.0 18.0 12.0 3-11 mmol/L Blood Urea Nitrogen 11 15 7-18 mg/dl Creatinine 0.87 0.79 0.60-1.20 mg/dl Est Creatinine Clear Calc Drug Dose 88.2 94.2 ml/min Estimated GFR () 82.8 93.0 Estimated GFR (Non- 71.4 80.2 BUN/Creatinine Ratio 13.0 18.5 10-20 Random Glucose 136 131 70-99 mg/dl Calcium Level 9.5 8.8 8.5-10.1 mg/dl Total Bilirubin 1.0 0.2-1 mg/dl Direct Bilirubin 0.2 0-0.2 mg/dl Aspartate Amino Transf (AST/SGOT) 21 15-37 U/L Alanine Aminotransferase (ALT/SGPT) 28 12-78 U/L Alkaline Phosphatase 81 45-117 U/L Total Protein 7.7 6.4-8.2 gm/dl Albumin 3.6 3.4-5.0 gm/dl Bedside Hemoglobin 15.3 12.0-16.0 g/dl Bedside Hematocrit 45 37-47 % Bedside Sodium 140 135-144 mEq/L Bedside Potassium 3.8 3.3-5.0 mEq/L Bedside Chloride 99 101-112 mEq/L Bedside Total CO2 28 24-31 mEq/l Bedside Blood Urea Nitrogen 12 7-18 mg/dl Bedside Creatinine 0.7 0.6-1.3 mg/dl Bedside Glucose (other) 135 70-99 mg/dl Bedside Ionized Calcium (Yovana) 1.20 1.12-1.32 mmol/l Magnesium Level 1.8 1.8-2.4 mg/dl Vitamin B12 Level 444 211-911 pg/mL Test 07/27/16 07:43 4/9/17 11:43 Range/Units Bedside Glucose 116 148 70-90 mg/dl
[2016-07-27] MEDS: ENOXAPARIN 120 MG/0.8 ML SYR SQ SCH ×3 (13:02→21:24)
--- NOTE | 2016-07-27 15:10 | Pharmacy Progress Note ---
Glycemic Control Intl Consult Date of Service Jul 27, 2016. Scope Glycemic Pharmacist consulted by Dr Page on 07/26/16 for glycemic control and to write orders per [facility] inpatient glycemic control protocol Objective Weight (Kilograms): 133.700 Accuchecks BSG (last 24hrs): Test 07/26/16 16:42 07/27/16 06:35 07/27/16 07:43 07/27/16 11:43 Random Glucose 136 mg/dl (70-99) 131 mg/dl (70-99) Bedside Glucose 116 mg/dl (70-90) 148 mg/dl (70-90) HbA1c PENDING Recent Pertinent Medications Outpatient Anti-diabetic Regimen: * Lantus 28 units SQ Daily in the morning * Byetta 10mcg SQ BIDM * A1c = 7.5 % 09/26/14 (outdated) The patient is currently receiving: * Basal insulin: Lantus 28 units every 24 hours given in the morning * Correctional Insulin: Novolog Correction per scale ACHS Goal Range: Low 100 mg/dL - High 140 mg/dL Correction Factor: 30 mg/dL/unit * Prandial insulin: Per carb ratio of 1 unit per 10 grams CHO consumed Risk Factors for Insulin Resistance: * Diet Assessment & Plan ASSESSMENT: * 60yo T2DM female with presumed adequate degree of outpatient control per last A1c. However, this value is outdated. A1c re-ordered and pending. Will assess current outpatient regimen and d.c recs based off of current A1c * Pt is on basal insulin + GLP-1 as an outpatient * AM fasting BSG is in goal range with current outpatient dosing and pt with minimal stressors/risk factors for insulin resistance. Seems reasonable to continue outpatient basal insulin dosing. Outpatient basal insulin dosing is c/ w weight & minimal stress insulin dosing. * Pt uses Byetta as prandial coverage as an outpatient. Will hold this med for admission and utilize bolus insulin dosing with NovoLog. Will start with weight/ minimal stress dosing c/w current basal insulin dosing. Will titrate based on BSG trends. * ADA & AACE recommend a goal blood sugar range 140-180 mg/dl for the majority of critically ill & non-critically ill patients. However, more stringent targets may be selected in individual cases. Will utilize more stringent goal of 110-140mg/dl based on patient age, comorbidities, and degree of outpatient control. PLAN FOR INPATIENT GLYCEMIC CONTROL: * Hold outpatient non-insulin diabetes medications (Byetta) * Basal insulin with Lantus 28 units SQ daily in AM (outpatient dosing) * NOVOLOG per scale ACHS or Q6hrs while NPO * Goal Range: Low 110 mg/dL - High 140 mg/dL * Correction Factor: 30 mg/dL/unit * Nutritional / Prandial insulin per carb ratio of 1 unit per 10 grams CHO consumed * Add A1c to discharge instructions to be communicated to PCP for medication adjustments if needed. * Please note that the plan above was derived based on current level of insulin resistance and hospital stress. These recommendations are appropriate for inpatient admission only. Plan of care upon discharge will need to be reassessed to avoid potential outpatient hypo/hyperglycemia. Thank you.
[2016-07-27 15:32] VITALS: BP 135/74; PULSE 101; TEMP 36.9; O2SAT 92
[2016-07-27] MEDS: WARFARIN SOD 5 MG TAB PO SCH (15:49)
[2016-07-27 17:20] VITALS: BP 143/79; PULSE 95
[2016-07-27] MEDS: CYCLOBENZAPRINE HCL 10 MG TAB PO SCH (21:20)
[2016-07-27 21:23] VITALS: BP 129/77; PULSE 99
[2016-07-27 23:08] VITALS: BP 130/77; PULSE 95; TEMP 37.2; O2SAT 95
[2016-07-28 00:11] VITALS: O2SAT 95
[2016-07-28 06:13] VITALS: BP 134/57; PULSE 91; TEMP 36.5; O2SAT 97
[2016-07-28] MEDS: LEVOTHYROXINE 100 MCG TAB PO SCH (06:13)
[2016-07-28] MEDS: OXYCODONE HCL IR 5 MG TAB (IMMEDIATE RELEASE) PO PRN ×2 (06:13→16:07)
[2016-07-28 06:41] LABS: ESTIMATED AVERAGE GLUCOSE 157 mg/dl; HA1C FLAG Normal (Normal)
[2016-07-28] MEDS: MINOCYCLINE~ORDER AWAITING ACTION SCH ×3 (08:00→16:00)
[2016-07-28] MEDS: METOPROLOL SUCC 25MG EXT REL TAB PO SCH (08:24)
[2016-07-28] MEDS: CHOLECALCIFEROL 400 INTER.UNIT TAB PO SCH (08:24)
[2016-07-28] MEDS: BuPROPion SR 100 MG TABCR PO SCH (08:24)
[2016-07-28] MEDS: EUCERIN CR 120 GM JAR EXT SCH (08:24)
[2016-07-28] MEDS: ENOXAPARIN 120 MG/0.8 ML SYR SQ SCH (08:24)
[2016-07-28] MEDS: INSULIN GLARGINE SOLOSTAR 100 UNITS/ML 3 ML PEN SC SCH (08:28)
[2016-07-28] MEDS: OXYCODONE HCL 20 MG TABCR (OXYCONTIN) PO SCH (08:28)
[2016-07-28] MEDS: INSULIN ASPART 100 UNITS/ML 3 ML PEN SC SCH ×3 (08:28→18:08)
[2016-07-28 08:35] LABS: HEMATOCRIT 39.4 % (37-47); MEAN CELL VOLUME 86.6 fL (80-100); MEAN CORPUSCULAR HEMOGLOBIN 30.3 pg (25-34); MEAN PLATELET VOLUME 9.3 fL (7.4-10.4); PLATELET COUNT 171 K/uL (130-400); RED BLOOD COUNT 4.55 M/uL (4.2-5.4); WHITE BLOOD COUNT 6.09 K/uL (4.8-10.8)
[2016-07-28 09:03] LABS: BUN/CREATININE RATIO 20.9 (10-20); CALCIUM 8.6 mg/dl (8.5-10.1); CREATININE 0.82 mg/dl (0.60-1.20); POTASSIUM 3.7 mmol/L (3.5-5.1)
[2016-07-28] MEDS: FUROSEMIDE 20 MG TAB PO SCH ×2 (09:53→18:00)
--- NOTE | 2016-07-28 11:17 | Pharmacy Progress Note ---
Glycemic: Assessment & Plan Date of Service Jul 28, 2016. Assessment & Plan The patient is currently receiving 47 units of insulin per day. BSGs ranging 116 - 165 mg/dl over the past 24hrs. * Basal insulin: Lantus 28 units every 24 hours * Correctional Insulin: Novolog Correction per scale ACHS Goal Range: Low 110 mg/dL - High 140 mg/dL Correction Factor: 30 mg/dL/unit * Prandial insulin: Per carb ratio of 1 unit per 10 grams CHO consumed BSGs acceptable, no changes needed to inpatient regimen at this time. Pharmacy will continue to monitor patient daily and write orders per [facility] inpatient glycemic control protocol. Thanks. * Please note that the plan above was derived based on current level of insulin resistance and hospital stress. These recommendations are appropriate for inpatient admission only. Plan of care upon discharge will need to be reassessed to avoid potential outpatient hypo/hyperglycemia.
--- NOTE | 2016-07-28 12:39 | Progress Note ---
Internal Med Progress Note Date of Service: Jul 28, 2016. Provider Documentation: SUBJECTIVE: Patient does have right > left knee pain and thus difficulty ambulating Able to ambulate with a walker Leg swelling + bilaterally No redness, warmth, fever, chills, abd pain, chest pain, SOB at rest, cough. OBJECTIVE: Vital Signs-as noted below Exam: General-AAOX3, no distress,Morbid obesity + Neck-Supple, Obese Lungs-AEBE decreased, no wheezing Heart-S1, S2 normal, no murmurs Abdomen-Soft, non tender, obese, BS present Extremities-Leg swelling bilaterally + no erythema, warmth Neuro-Grossly no focal deficits Lab data as noted below. ASSESSMENT & PLAN: 60 yo F with leg pain, swelling. LEG PAIN (Right > Left) Right lower leg extending from knee to lower leg. No signs of cellulitis, effusion, swelling has improved. -Multifactorial: Hx of chronic pain issues on chronic narcotics with hx of fibromyalgia, morbid obesity. Does have b/l knee arthritis, had received cortisone shots recently. Follows up with Psychology Intern too outpatient. No trauma. -No acute issues noted. -Work up- Venous duplex- Negative for DVT. Will order x ray right knee -Able to ambulate with walker LEG SWELLING-BILATERAL Acute on chronic worsening secondary to not taking her lasix x 7 days. No evidence of cellulitis, venous duplex negative for DVT, Echo- Mild LVH, EF 50 -55% -S/P IV lasix x 1 dose. Will increase lasix to 20 mg PO BID from 20 mg daily as at home CHRONIC SOB, cherie on exertion -Likely secondary to Morbid obesity, CAMRYN -CT chest- no PE, Consolidation, CHF. 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 INR is 2.0 -S/P Lovenox injections yesterday as INR was subtherapeutic AMBULATORY DYSFUNCTION -Secondary to weight/Leg pain and swelling -PT/OT evaluation ordered DM-2 -Hold Byetta -Lantus, ISS HYPOTHYROIDISM -Normal TSH ROSACEA -Metrogel PRN PSORIASIS -Topical steroids PRN DVT proph: coumadin; Lovenox SQ FULL CODE DISPOSITION OT- said not safe to return home Today ambulating with a walker. Refusing to go to rehab, would prefer [facility] with PT/OT services Vital Signs: Date Time Temp Pulse Resp B/P Pulse Ox O2 Delivery O2 Flow Rate FiO2 07/28/16 08:00 Room Air 07/28/16 06:13 36.5 91 18 134/57 97 Room Air 07/28/16 00:11 95 Room Air CPAP 07/27/16 23:08 37.2 95 18 130/77 95 Room Air 07/27/16 21:23 99 129/77 07/27/16 17:20 95 143/79 07/27/16 16:00 Room Air 07/27/16 15:32 36.9 101 20 135/74 92 Lab Results: Results Past 24 Hours Test 07/27/16 16:32 07/27/16 19:55 07/27/16 22:31 07/28/16 07:50 Range/Units Bedside Glucose 124 141 165 70-90 mg/dl White Blood Count 6.09 4.8-10.8 K/uL Red Blood Count 4.55 4.2-5.4 M/uL Hemoglobin 13.8 12.0-16.0 g/dL Hematocrit 39.4 37-47 % Mean Corpuscular Volume 86.6 80-100 fL Mean Corpuscular Hemoglobin 30.3 25-34 pg Mean Corpuscular Hemoglobin Concent 35.0 32-36 g/dl RDW Standard Deviation 42.6 36.4-46.3 fL RDW Coefficient of Variation 13.5 11.5-14.5 % Platelet Count 171 130-400 K/uL Mean Platelet Volume 9.3 7.4-10.4 fL Prothrombin Time 22.0 9.0-12.0 SECONDS Prothromb Time International Ratio 2.0 0.9-1.1 Test 07/28/16 08:02 07/28/16 08:05 07/28/16 11:31 Range/Units Sodium Level 139 136-145 mmol/L Potassium Level 3.7 3.5-5.1 mmol/L Chloride Level 101 98-107 mmol/L Carbon Dioxide Level 30 21-32 mmol/L Anion Gap 8.0 3-11 mmol/L Blood Urea Nitrogen 17 7-18 mg/dl Creatinine 0.82 0.60-1.20 mg/dl Est Creatinine Clear Calc Drug Dose 90.7 ml/min Estimated GFR () 88.9 Estimated GFR (Non- 76.7 BUN/Creatinine Ratio 20.9 10-20 Random Glucose 134 70-99 mg/dl Calcium Level 8.6 8.5-10.1 mg/dl Bedside Glucose 116 128 70-90 mg/dl
[2016-07-28 13:23] VITALS: Ht 152.4 cm; Wt 133.7 kg
[2016-07-28 15:44] VITALS: BP 151/87; PULSE 93; TEMP 36.8; O2SAT 95
--- NOTE | 2016-07-28 15:44 | DIAGNOSTIC IMAGING REPORT ---
RIGHT KNEE 1 OR 2 VIEWS ROUTINE CLINICAL HISTORY: Right knee pain. Ambulatory dysfunction. COMPARISON: None FINDINGS: Positioning on this exam is suboptimal. There is at least moderate joint space narrowing within the medial and lateral compartments with osteophytosis. No acute fracture s identified. There is a possible small right knee joint effusion. IMPRESSION: 1. Moderate to severe arthritis within the medial and lateral compartments of the right knee. 2. Possible small right knee joint effusion. 3. No acute fracture. Electronically signed by: Isaac Roland M.D. 07/28/2016 3:42 PM Dictated Date/Time: 07/28/2016 3:41 PM
[2016-07-28] MEDS: WARFARIN SOD 5 MG TAB PO SCH (16:08)
--- NOTE | 2016-07-28 16:39 | Discharge Instructions ---
Discharge Instructions Date of Service Jul 28, 2016. Admission Reason for Admission: Leg Pain, Bilateral Discharge Discharge Diagnosis / Problem: 1. Acute on chronic leg/knee pain secondary to arthritis Discharge Goals Goal(s): Decrease discomfort, Improve function, Increase independence Activity Recommendations Activity Limitations: per Instructions/Follow-up section (as tolerated with assistance (walker)) . Instructions / Follow-Up Instructions / Follow-Up MEDICATION CHANGES: 1. Increase oxycodone to 10 mg from 5 mg q 6 hours as needed for severe pain till further evaluated by your PCP during next appointment in 4 days ACTIVITY Use walker for Activities of daily living MONITOR INR monitoring at coumadin clinic FOLLOW UP 1. Follow up with Dr Ortiz 08/01/16 at 11:00 AM 2. Follow up with coumadin clinic Current Hospital Diet Patient's current hospital diet: AHA Diet (Heart Healthy), Diabetes Type 2 Diet Discharge Diet Recommended Diet: AHA Diet (Heart Healthy), Low Sodium Diet (2gm Na), Diabetes Type 2 Diet, Low Fat Diet Pending Studies Studies pending at discharge: no Laboratory Results Hemoglobin A1c Test 07/27/16 06:35 Range/Units Estimated Average Glucose 157 mg/dl Hemoglobin A1c 7.1 H 4.5-5.6 % Medical Emergencies . Who to Call and When: Medical Emergencies: If at any time you feel your situation is an emergency, please call 911 immediately. . Non-Emergent Contact Non-Emergency issues call your: Primary Care Provider . . "Provider Documentation" section prepared by Anel Solorzano. VTE Core Measure Inpt VTE Proph given/why not?: Warfarin (Coumadin)
--- NOTE | 2016-07-28 16:50 | Discharge Summary ---
Discharge Summary Date of Service Jul 28, 2016. Discharge Summary Admission Date: Jul 26, 2016 at 20:47 Discharge Date: Jul 28, 2016 Discharge Disposition: Home with services (with PT/OT ) Principal Diagnosis: 1. Acute on chronic leg /knee pain secondary to moderate-severe arthritis/ Morbid Obesity Secondary Diagnoses/Problems: 1. Hx of PE on coumadin (Remote) 2. Hypothyroidism 3. DM-2 4. Rosacea 5. Morbid obesity 6. CAMRYN Procedures: Venous duplex CT scan chest X ray right knee PT/OT Consultations: None Pending Studies/Follow-Up: Instructions / Follow-Up MEDICATION CHANGES: 1. Increase oxycodone to 10 mg from 5 mg q 6 hours as needed for severe pain till further evaluated by your PCP during next appointment in 4 days ACTIVITY Use walker for Activities of daily living MONITOR INR monitoring at coumadin clinic FOLLOW UP 1. Follow up with Dr Ortiz 08/01/16 at 11:00 AM 2. Follow up with coumadin clinic Medication Reconciliation Continued Medications: Albuterol Sulfate (Proair Hfa) 108 Mcg/ Aer 2 PUFFS INH QID PRN for Shortness of Breath Bupropion (Wellbutrin Sr) 100 Mg Ertab 100 MG PO BID Cyclobenzaprine Hcl (Flexeril) 10 Mg Tab 10 MG PO HS Ergocalciferol (Vitamin D) 400 Inter.unit Tab 400 INTER.UNIT PO DAILY, 0 Refills Eucerin (Eucerin) Cre 1 APPLN TOP DAILY APPLY TO AFFECTED FACIAL AREA Exenatide (Byetta) 10 Mcg/0.04 Ml Inj 10 MCG SQ BIDM Folic Acid (Folvite) 1 Mg Tab 1 MG PO DAILY, TAB Furosemide (Furosemide) 20 Mg Tab 20 MG PO DAILY Hydrocortisone (Topical) (Hydrocortisone) 2.5 % Oin 1 APPLN TOP BID PRN for RASH, GM APPLY TO FACE NEEDED Insulin Glargine (Lantus Solostar) 100 Unit/Ml Inj 28 UNITS SQ QAM, PEN Iodoquinol-Hydrocortisone In A (Vytone) 1 Cre Cre 1 APPLN TOP BID PRN for FLARES Ipratropium-Albuterol (Combivent Respimat) 1 Aer Aer 1 PUFFS INH QID PRN for Shortness of Breath Levothyroxine Sodium (Levothyroxine Sodium) 100 Mcg Tab 100 MCG PO DAILY Lidocaine (Lidoderm Patch 5%) 1 Ea Tdsy 2 PATCH TD DAILY PRN for Pain Apply two patches on back area daily, keep on up to 12 hours in 24 hour period then remove. Metoprolol Succ (Toprol Xl) (Toprol-Xl) 25 Mg Tabcr 25 MG PO BID Metronidazole Hcl (Metrocream) Cr 1 APPLN TOP BID PRN for flares APPLY TO FACE Minocycline Hcl (Minocycline Hcl) 50 Mg Cap 1 CAP PO BIDM, CAP Oxycodone Hcl (Oxycontin) 20 Mg Tab 20 MG PO Q12 Oxycodone Hcl (Oxycodone Hcl) 5 Mg Cap 5 MG PO Q6 PRN for Pain NO MORE THAN 2 PER DAY Pimecrolimus (Elidel) 1 % Cre 1 APPLN TOP BID PRN for RASH APPLY TO AFFECTED FACIAL AREA, NEEDED Warfarin Sodium (Coumadin) 5 Mg Tab 5 MG PO DAILY, TAB Admission Information HPI (per Admitting provider): 60 yo F presents today with difficulty ambulating at home secondary to severe leg pain and leg swelling over the past 7 days. She states she takes Lasix 20mg PO daily, and has been noncompliant with this for the past 7 days as she has been going to appointments with her and cannot take them when out of her house. She also admits to some dietary indiscretions with salty foods this week. She states that at baseline she can walk to the back of the grocery store and up to the front without stopping, but now she is have trouble doing small things like ambulating to the bathroom. Specifically, she reports pain around both of her knees and states this began after a bilateral cortisone shot in her [employer]'s office recently. She has some pain over the anterior tibial plateau bilaterally, and on the right this pain tracks up the lateral side of her right knee. Then she reports some L ankle swelling which she attributes to using this leg to compensate from her gait which has been off 2/2 to the pain in the knees. She also reports burning neuropathic pain on the bottoms of her feet. Underlying everything is a history of fibromyalgia, for which she takes chronic narcotics. She is morbidly obese, and reports a weight gain of 7 pounds over the past week. 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 For this, she remains on coumadin and is fully anticoagulated. She is not tachypneic, there is no conversational dyspnea today, and she is not hypoxic. However, she does appear short of breath with minimal exertion. She is s/p ablation many years ago for an SVT, but denies any chest pain or palpitations at this time. She also denies headache, sore throat, cough, fevers, chills, nausea, vomiting, diarrhea , or constipation. She is tolerating PO. CT chest with contrast reveals no PE or other acute lung process in the ER; bilateral lower extremity ultrasounds are negative for any DVT. Physical Exam (per Admitting): GEN: obese, in no acute distress, alert and appropriate, short of breath with minimal exertion HEENT: NC/AT, PERRL, normal sclerae, pharynx non-acute, mucous membranes moist CARDIO: reg rate, S1/2 heard without m/g/r LUNGS: CTA bilaterally, no crackles, rales or wheezes, good diaphragmatic excursion ABD: soft, non-tender, non-distended, no rebound or guarding EXTREMITY: RP and DP palpable 2+ bilat, extremities are warm and well-perfused, there is chronic change to the skin in the form of erythroderma and hardened, tightened skin. No pitting edema is present. Legs are very obese limiting exam. ROM appears intact, gait was not assessed as patient is a fall risk at this time. NEURO: CN 2-12 grossly intact, sensation intact throughout MUSC:moves all extremities equally, no gross focal deficits SKIN: warm and dry and as above Hospital Course 60 yo F with leg pain, swelling. ACUTE ON CHRONIC LEG PAIN (Right > Left) Right lower leg extending from knee to lower leg. Right > Left knee pain. No signs of cellulitis, effusion, swelling has improved. -Multifactorial: Likely moderate-severe arthritis -acute on chronic exacerbation. Had received cortisone shots 3-4 weeks ago at [employer] office. Hx of chronic pain issues on chronic narcotics with hx of fibromyalgia, morbid obesity. No trauma. -No acute issues noted. -On oxycodone q 12 hours and 5 mg q 6 hours prn. Increase oxycodone to 10 mg every 6 hours till seen by PCP next appt -Work up- Venous duplex- Negative for DVT. X ray right knee ordered today- Moderate to severe arthritis, possible small right effusion -Able to ambulate with walker- prescription given for a new walker -Recommend follow up with Orthopedics / Rheumatology outpatient. LEG SWELLING-BILATERAL Acute on chronic worsening secondary to not taking her lasix x 7 days ? No evidence of cellulitis, venous duplex negative for DVT, Echo- Mild LVH, EF 50 -55%. Not pitting, likely lymphedema -S/P IV lasix x 1 dose. Will continue with 20 mg lasix -May benefit from wrapping for probable lymphedema. CHRONIC SOB, cherie on exertion -Likely secondary to Morbid obesity, CAMRYN -CT chest- no PE, Consolidation, CHF. 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 INR is 2.0 -S/P Lovenox injections yesterday as INR was subtherapeutic -Follow up with coumadin clinic AMBULATORY DYSFUNCTION -Secondary to weight/Leg pain and swelling -PT/OT evaluation ordered- recommends [facility], but patient refused DM-2 -Hold ByJOYCELYN Melendez HYPOTHYROIDISM -Normal TSH ROSACEA -Metrogel PRN PSORIASIS -Topical steroids PRN DVT proph: coumadin; Lovenox SQ FULL CODE DISPOSITION PT/OT- recommends rehab Today ambulating with a walker. Refusing to go to rehab, would prefer [facility] with PT/OT services. Arrangements made. Walker with seat and cushion prescription given. SS on board- appreciate help. Total time spent on discharge = 28 minutes This includes examination of the patient, discharge planning, medication reconciliation, and communication with other providers. Discharge Instructions Discharge Goals Goal(s): Decrease discomfort, Improve function, Increase independence Activity Recommendations Activity Limitations: per Instructions/Follow-up section (as tolerated with assistance (walker)) . Instructions / Follow-Up Instructions / Follow-Up MEDICATION CHANGES: 1. Increase oxycodone to 10 mg from 5 mg q 6 hours as needed for severe pain till further evaluated by your PCP during next appointment in 4 days ACTIVITY Use walker for Activities of daily living MONITOR INR monitoring at coumadin clinic FOLLOW UP 1. Follow up with Dr Ortiz 08/01/16 at 11:00 AM 2. Follow up with coumadin clinic Current Hospital Diet Patient's current hospital diet: AHA Diet (Heart Healthy), Diabetes Type 2 Diet Discharge Diet Recommended Diet: AHA Diet (Heart Healthy), Low Sodium Diet (2gm Na), Diabetes Type 2 Diet, Low Fat Diet Pending Studies Studies pending at discharge: no Laboratory Results Hemoglobin A1c Test 07/27/16 06:35 Range/Units Estimated Average Glucose 157 mg/dl Hemoglobin A1c 7.1 H 4.5-5.6 % Medical Emergencies . Who to Call and When: Medical Emergencies: If at any time you feel your situation is an emergency, please call 911 immediately. . Non-Emergent Contact Non-Emergency issues call your: Primary Care Provider . . "Provider Documentation" section prepared by Anel Solorzano. VTE Core Measure Inpt VTE Proph given/why not?: Warfarin (Coumadin)
[2016-07-28 17:07] VITALS: BP 151/87; PULSE 93; TEMP 36.8; O2SAT 95
== END 2016-07-28 19:15 | disposition home health service (06) ==
LOC: ENRESERVTM → ENRESERVDT → C.EDB 15:58 → C.MS4W 20:47
PROVIDERS: ADMIT Hospitalist; ATTEND Internal Medicine
DX: M79.604 Pain in right leg (principal); M79.605 Pain in left leg; M79.89 Other specified soft tissue disorders; E66.01 Morbid (severe) obesity due to excess calories; Z86.718 Personal history of other venous thrombosis and embolism; E11.9 Type 2 diabetes mellitus without complications; G47.33 Obstructive sleep apnea (adult) (pediatric); R06.02 Shortness of breath; Z79.01 Long term (current) use of anticoagulants; E72.12 Methylenetetrahydrofolate reductase deficiency; R26.9 Unspecified abnormalities of gait and mobility; E03.9 Hypothyroidism, unspecified

== ENCOUNTER → 2016-10-22 | Outpatient (CLI) | payer OTHER ==
[~2016-10-22] MED LIST changes: -CLBCRM30 EXT; -FLUO0.05 TOP; +FOLI1TAB7 PO; +HYDR2.5O TOP; +INSDGIPEN SQ; -LIDO5DIS10 TD; +MINO50CA3 PO; +NF656 TD; +WARF5TAB90 PO
--- NOTE | 2016-10-23 13:50 | MAMMOGRAPHY REPORT ---
BILATERAL DIGITAL SCREENING MAMMOGRAM TOMOSYNTHESIS WITH CAD: 10/22/2016 CLINICAL HISTORY: Asymptomatic. Personal history of breast cancer. TECHNIQUE: Breast tomosynthesis in addition to standard 2D mammography was performed. Current study was also evaluated with a Computer Aided Detection (CAD) system. COMPARISON: Comparison is made to exams dated: 07/22/2007, 07/19/2007, and 07/15/2006. BREAST COMPOSITION: There are scattered areas of fibroglandular density in both breasts. FINDINGS: There is a possible new cluster of microcalcifications in the upper outer posterior left b reast, for which additional spot magnification views are recommended. There is expected architectural distortion and skin irregularity in the 3:00 right breast, at the sit e of prior lumpectomy. Surgical clips project over the right axilla on the MLO view. There are diff use bilateral benign rim calcifications, benign-appearing rodlike calcifications and groupings of calderon ign-appearing round microcalcifications which are generally stable compared to prior mammograms. No o ther suspicious mass, architectural distortion or cluster of microcalcifications is seen. IMPRESSION: ACR BI-RADS CATEGORY 0: INCOMPLETE EVALUATION: NEED ADDITIONAL IMAGING EVALUATION 1. Spot magnification views are recommended for a possible new cluster of microcalcifications in the left upper outer quadrant. 2. Right breast ultrasound is recommended for reported pain in the lower inner quadrant and axilla, which the patient reported to our bakery technician during the exam. The patient will be called to schedule an appointment. Approximately 10% of breast cancers are not detected with mammography. A negative mammographic report should not delay biopsy if a clinically suggestive mass is present. Erica Burkett M.D. ay/:10/22/2016 16:40:38 Production Leader: Effie JULIO)(Tee), [facility] letter sent: Addl Imaging 0 BI-RADS Code: ACR BI-RADS Category 0: Incomplete Evaluation: Need Additional Imaging Evaluation
== END | disposition home or self-care (01) ==
LOC: C.MAMM 15:32
PROVIDERS: ATTEND Family Medicine
DX: Z12.31 Encounter for screening mammogram for malignant neoplasm of breast (principal); R92.0 Mammographic microcalcification found on diagnostic imaging of breast; N64.89 Other specified disorders of breast

== ENCOUNTER → 2016-10-31 | Outpatient (CLI) | payer OTHER ==
--- NOTE | 2016-10-31 12:45 | MAMMOGRAPHY REPORT ---
UNILATERAL LEFT DIGITAL DIAGNOSTIC MAMMOGRAM AND TARGETED RIGHT ULTRASOUND: 10/31/2016 CLINICAL HISTORY: Callback from screening mammogram for left breast calcifications. The patient also reported right lower inner quadrant and axillary breast pain at the time of her screening exam. She reports that the pain has improved. TECHNIQUE: Spot magnification left CC and ML views were obtained. COMPARISON: Comparison is made to exams dated: 10/22/2016 mammogram, 04/29/2011 specimen, 04/29/2011 [facility], 07/22/2007, 07/19/2007, and 07/15/2006. BREAST COMPOSITION: There are scattered areas of fibroglandular density in the left breast. FINDINGS: Spot magnification views demonstrate a 9 mm group of calcifications in the left lateral br east at approximately 3:00. The calcifications are predominantly punctate/round although they differ somewhat in shape and size. The calcifications appear increased from prior exams and are therefore indeterminant. Recommend stereotactic biopsy for further evaluation. Other scattered benign-appeari ng calcifications are noted. Targeted ultrasound was performed of the areas of pain pointed out by the patient, in the right breas t at 3:00, 3 cm from the nipple at her lumpectomy bed. There is an area of hypoechoic shadowing and mild overlying skin thickening noted, consistent with expected postsurgical changes. No suspicious m ass or other suspicious sonographic abnormality is evident. Ultrasound of the right axillary region at the site of pain demonstrates no suspicious masses or other suspicious abnormalities. Incidental morphologically normal right axillary lymph nodes are seen. IMPRESSION: ACR BI-RADS CATEGORY 4: SUSPICIOUS, TARGETED ULTRASOUND ACR BI-RADS CATEGORY 4: SUSPICIO US 1. Grouped calcifications in the left 3:00 breast are indeterminant and stereotactic biopsy is recom mended for further evaluation. 2. No suspicious sonographic abnormality at the sites of right axillary and right breast pain pointe d out by the patient. Recommend clinical follow-up. A phone call was made to the physician's office to confirm faxed results were received. The patient has been verbally notified of the results. She tentatively scheduled the biopsy before leaving the d epartment. I will leave it up to her prescribing physician if she can safely discontinue Coumadin pr ior to the procedure. Approximately 10% of breast cancers are not detected with mammography. A negative mammographic report should not delay biopsy if a clinically suggestive mass is present. Marie Love M.D. ah/:10/31/2016 10:19:52 Head Of Talent Management: Loreta Farfan, [facility] letter sent: Abnormal 4/5 BI-RADS Code: ACR BI-RADS Category 4: Suspicious Ultrasound BI-RADS: ACR BI-RADS Category 4: Suspici ous
== END | disposition home or self-care (01) ==
LOC: C.MAMM 09:27
PROVIDERS: ATTEND Family Medicine
DX: R92.0 Mammographic microcalcification found on diagnostic imaging of breast (principal)

== ENCOUNTER → 2016-11-13 | Outpatient (CLI) | payer OTHER ==
--- NOTE | 2016-11-13 13:22 | Discharge Instructions ---
Discharge Instructions Procedure Procedure Date: Nov 13, 2016. Reason for visit: Left Calcifications. Discharge Discharge Date: Nov 13, 2016. Discharge Diagnosis: post left breast stereotactic guided biopsy of calcifications in the lower outer quadrant Medications Restart Stopped Medication(s): Restart Coumadin today Instructions Activity Recommendations: Additional Limitations (see below) Return to School/Work: no limitations Recommended Home Diet: No Limitations Provider Instructions: ACTIVITY RECOMMENDATIONS: * No lifting, pushing, pulling or exercising the affected side for three days. RETURN TO SCHOOL/WORK: * You may return to work/school after the procedure, but do not perform any strenuous activities for 24 to 48 hours. MEDICATIONS: * Tylenol (two 325 mg) every four to six hours if needed for mild pain (if not allergic to Tylenol). DIET: * Resume previous diet. SPECIAL CARE INSTRUCTIONS: * Keep biopsy site dry for 24 hours. May shower after 24 hours, but do not soak (bathe) incision. * May remove Tegaderm (plastic patch) tomorrow AFTER showering. * Leave the steri-strips on for one week. Allow the steri-strips to fall off by themselves. If not off after one week, you may remove them. You may place a Bandaid crosswise over the strips, if desired. * Apply ice 10 minutes on and 10 minutes off as needed. * Wear a bra at bedtime to sleep more comfortably for 2-3 days. * Your referring physician should have the results after approximately 5 to 7 business days. * Call for unusual bleeding, fever, drainage, etc or if you have any questions call [phone] during normal business hours or after hours call Dr Burkett, . FOLLOW UP VISIT: Follow-up with Referring Physician as scheduled. Allergies Coded Allergies: Sulfa Antibiotics (Verified Allergy, Severe, RASH, ITCHINESS, HIVES, DIFFICULTY BREATHING, 09/26/14) Sulfites (Unverified Allergy, Severe, rash,diff breathing, 04/17/14) Amoxicillin (Verified Allergy, Unknown, rash/hives, 04/17/14) Aspirin (Verified Allergy, Unknown, 04/17/14) Erythromycin (Verified Allergy, Unknown, UNKN, 04/17/14) Methocarbamol (Verified Allergy, Unknown, rash,itchiness, hives, difficulty breathing, 12/29/14) Niacin (Verified Allergy, Unknown, red/itchy/heart racing, 04/17/14) Ibuprofen (Verified Adverse Reaction, Severe, TACHYCARDIA , 04/17/14) Meperidine (Verified Adverse Reaction, Severe, N/V, SEVERE NIGHTMARES, ) Jimena Krishna Recommendations: Call your doctor if: * Temperature above 101 degrees * Pain not relieved by pain medicine ordered * There is increased drainage or redness from any incision * You have any unanswered questions or concerns. Your Doctors Instructions noted above were prepared by provider Erica Burkett. Patient Signature Section: Patient Instructions Signature Page Maci Gtz Patient (or Guardian) Signature/Date: I have read and understand the instructions given to me by my caregivers. Caregiver/RN/Doctor Signature/Date: The above-named patient and/or guardian has received patient instructions on this date. + Original Patient Signature Page (only) stays with chart. Please make copy for patient.
--- NOTE | 2016-11-13 16:01 | MAMMOGRAPHY REPORT ---
STEREOTACTIC GUIDED BIOPSY LEFT BREAST: 11/13/2016 CLINICAL HISTORY: Indeterminate clustered microcalcifications in the lower outer middle to posterior left breast. Patient presents for stereotactic biopsy. Personal history of right breast cancer stat us post breast conservation therapy. COMPARISON: Comparison is made to exams dated: 10/31/2016 ultrasound, 10/31/2016 mammogram, 10/22/2016 [facility], 07/22/2007, 07/19/2007, and 07/15/2006. PATIENT CONSENT: After explaining the risks, benefits and alternatives of the procedure to the patien t, informed consent was obtained both verbally and in writing. Specific risks include: Bleeding, inf ection, puncture of adjacent structure, pain, nontarget biopsy, sampling error, metal allergy and med ication reaction. PROCEDURE DESCRIPTION: A time-out was performed and the left breast was confirmed as the site of biop sy. The patient was placed prone on the stereotactic biopsy table and the breast was placed in CC fro m below compression. A machine heel sprayer image was obtained that demonstrated the clustered microcalcifications i n question. They are amenable to sterotactic biopsy. Then +15 and -15 stereo pair images were obta ined. The calcifications were targeted utilizing the coordinates obtained by the computer. The skin was prepped with Betadine. 1% Lidocaine with and without epinipherine was administered as local anest hesia. A small skin incision was made. Through the incision, the needle was inserted to the depth de termined by the computer. 8 samples were obtained using a [employer] 9-gauge vacuum-assisted biopsy device. The specimen radiograph demonstrated several marketing representative microcalcifications, therefore, a metallic marker was placed at the biopsy site. There was no immediate complication. Hemostasis was a chieved after several minutes of manual compression. The samples were sent to pathology in two appro priately labeled containers, "with calcifications" and "without calcifications". All of the samples w ere obtained from the same single biopsy site. Postprocedure CC and ML views of the left breast were obtained. A new dumbbell shaped metallic biop sy marker and small, 1 cm hematoma is seen at the biopsy site in the lower outer quadrant of the left breast. IMPRESSION: STEREOTACTIC GUIDED BIOPSY Status post left breast stereotactic guided biopsy of a cluster of microcalcifications in the lower o uter quadrant, with biopsy marker placed at the site. The patient will receive notification of the biopsy results from her referring physician. Erica Burkett M.D. ay/:11/13/2016 13:43:01 Lead Network Engineer: Effie REYES (R)), [facility]
--- NOTE | 2016-11-13 16:01 | MAMMOGRAPHY REPORT ---
UNILATERAL LEFT DIGITAL DIAGNOSTIC MAMMOGRAM: 11/13/2016 CLINICAL HISTORY: Status post stereotactic guided biopsy of a cluster of microcalcifications in the l ower outer posterior left breast. Please refer to the report from left breast stereotactic guided biopsy performed at the same time for full detail. IMPRESSION: POST PROCEDURE IMAGING FOR MARKER PLACEMENT Please refer to the report from left breast stereotactic guided biopsy performed at the same time for full detail. Approximately 10% of breast cancers are not detected with mammography. A negative mammographic report should not delay biopsy if a clinically suggestive mass is present. Erica Burkett M.D. ay/:11/13/2016 13:20:44 Retail Loan Officer: Effie WINCHESTER(Dary)(Tee), [facility] BI-RADS Code: Post Procedure Imaging For Marker Placement
== END | disposition home or self-care (01) ==
LOC: C.MAMM 12:23
PROVIDERS: ATTEND Family Medicine
DX: R92.0 Mammographic microcalcification found on diagnostic imaging of breast (principal)